=== PATIENT | female | born 1995 | race Caucasian/White ===

== ENCOUNTER 2020-07-21 00:24 | Outpatient (CLI) | payer MEDICAID, SELFPAY ==
--- NOTE | 2020-07-21 | DI.US_ITS ---
EXAM: US OB CRISPIN WEIGHT CLINICAL HISTORY: EFW,CRISPIN,GEST DIABETES,O24.19 TO [facility] AFTER,. TECHNIQUE: Transabdominal obstetrical ultrasound performed. COMPARISON: No exams were available for comparison FINDINGS: Transabdominal obstetrical ultrasound performed. FINDINGS: Number of fetuses: One. position: Cephalic. Placental location: Posterior. No evidence of previa. BIOMETRIC DATA: EFW: 3135 grms 58% Composite Age: 37 weeks 0 days EDC: 08/11/2020 Heart Rate: 165BPM Amniotic fluid index: 15.6 cm. Visually, amount of fluid is within normal limits. IMPRESSION: 1. Single live intrauterine gestation as above. 2. Estimated weight is 3135gms. 3. Amniotic fluid index is 15.6 cm. Visually within normal limits. DATA REPOSITORY:
== END 2020-07-21 00:44 ==
PROVIDERS: Visit Provider Advanced Practice Midwife
DX: O24.410 Gestational diabetes mellitus in pregnancy, diet controlled (principal)
CPT/HCPCS: 76816

== ENCOUNTER 2020-07-21 02:24 | Outpatient (CLI) | payer MEDICAID, SELFPAY ==
[2020-07-21 12:14] LABS: Abs Immature Grans 0.03 10^3/uL (0.0-0.06); Absolute Basophil Count 0.03 10^3/uL (0.0-0.2); Absolute Eosinophil Count 0.04 10^3/uL (0.0-0.7); Absolute Lymphocyte Count 1.62 10^3/uL (1.2-3.4); Absolute Monocyte Count 0.34 10^3/uL (0.1-0.8); Absolute Neutrophil Count 6.01 10^3/uL (1.2-6.7); Basophils % 0.4; Eosinophils % 0.5; HCT 32.8 % (36.0-46.0); HGB 11.7 g/dL (11.2-15.7); Immature Grans % 0.4; Lymphocytes % 20.1; MCH 33.8 pg (27.0-33.0); MCHC 35.7 % (32.0-36.0); MCV 94.8 fL (80-95); MPV 11.2 fL (8.0-11.0); Monocytes % 4.2; Neutrophils % 74.4; Nucleated RBC 0 %; Platelet Count 260 10^3/uL (130-400); RBC 3.46 10^6/uL (3.93-5.22); RDW-SD 52.1 fL; WBC 8.07 10^3/uL (4.4-10.8)
[2020-07-21 13:13] LABS: Hemoglobin A1C 4.2 % (<5.7)
[2020-07-21 13:39] LABS: Glucose 111 mg/dL (74-106)
[2020-08-04 15:35] LABS: Hepatitis C Ab w Rflx HCV PCR Negative (Negative)
[2020-08-04 15:36] LABS: Varicella IgG Antibody Equivocal
[2020-08-04 15:38] LABS: Syphilis Total Ab w/Reflex Nonreactive (Nonreactive)
== END 2020-07-21 02:44 ==
PROVIDERS: Advanced Practice Midwife; Visit Provider Advanced Practice Midwife
DX: Z34.91 Encounter for supervision of normal pregnancy, unspecified, first trimester (principal)
CPT/HCPCS: 36415; 82947; 86787; 86803; 86850; 86900; 86901; 83036; 85025; 86780

== ENCOUNTER 2020-07-21 13:12 | Outpatient (REF) | payer MEDICAID, SELFPAY ==
[2020-07-21 14:33] LABS: *AMPHETAMINES SCREEN URINE Negative (Negative); *BARBITURATES SCREEN URINE Negative (Negative); *BENZODIAZEPINES SCREEN URINE Negative (Negative); Cannabinoids THC Negative (Negative); Cocaine Screen,Urine Negative (Negative); METHADONE URINE SCREEN Negative (Negative); OPIATES URINE SCREEN Negative (Negative)
[2020-07-21 14:35] LABS: Tricyclic Antidepressants Negative (Negative)
[2020-07-29 09:23] LABS: Buprenorphine Negative
== END 2020-07-21 13:32 ==
LOC: LBN 13:12
PROVIDERS: Visit Provider Advanced Practice Midwife
DX: Z34.91 Encounter for supervision of normal pregnancy, unspecified, first trimester (principal)
CPT/HCPCS: 36415; 80307; 82947; 86787; 86803; 86850; 86900; 86901; 83036; 85025; 86780; 87081; 87086

== ENCOUNTER 2020-08-02 12:49 | Outpatient (CLI) | payer MEDICAID, SELFPAY ==
--- NOTE | 2020-08-02 11:00 | NS.NUTBLAN_ITS ---
Holli was referred for Medical Nutrition Therapy for Gestational Diabetes. BEVERLY 08/10/20. Recently transferred to [facility]. 5'2 147 lbs, total weight gain 15 lbs. Holli did not bring in glucometer or blood sugar log. She reports that her fasting sugars are <95 mg/dl, reports most of her post prandial sugars < 120 mg/dl (checking 2 hours after meals). Some elevated post prandials noted, but Holli was able to identify foods that contributed. Holli reports that she had a low BS this week (63 mg/dl) after eating a bowl of rice. She reports food insecurity and was referred to [facility]. Most recent A1C 4.2% (07/21/20) GDM well controlled with diet/activity at this time. Encouraged her to continue to check BS as directed by provider. Reviewed nutritional principles for optimal blood sugar control with GDM- especially balancing carbohydrates and protein at meals. Very receptive to information. Holli to follow up with [facility] Yoder and [facility] for food insecurity and program options available to her.
--- NOTE | 2020-08-12 13:59 | W.DIABETESNO ---
Date of service: 08/12/20 Time of Service: 14:00 Diabetes Note NOTE: Spoke to Holli on phone. Being induced this weekend. Fasting sugars <95 mg/dl. Some elevated post prandial (130-180 mg/dl) but mostly below 140 mg/dl after meals. Did not want to discuss meals at this time. Reports will need more strips to check sugars after . will continue to follow. Time Spent in Nutritional Counseling and Treatment: 10
== END 2020-08-02 13:09 ==
PROVIDERS: Visit Provider Dietitian, Registered
DX: O24.410 Gestational diabetes mellitus in pregnancy, diet controlled (principal); Z71.3 Dietary counseling and surveillance
CPT/HCPCS: 97802

== ENCOUNTER 2020-08-14 19:01 | Inpatient (IN) | payer MEDICAID, SELFPAY ==
[2020-08-14 19:08] VITALS: BP 119/69; PULSE 81; RESP 16; TEMP 36.7; O2SAT 98
[2020-08-14 19:27] LABS: HCT 32.2 % (36.0-46.0); HGB 11.4 g/dL (11.2-15.7); MCH 33.2 pg (27.0-33.0); MCHC 35.4 % (32.0-36.0); MCV 93.9 fL (80-95); MPV 11.7 fL (8.0-11.0); Platelet Count 222 10^3/uL (130-400); RBC 3.43 10^6/uL (3.93-5.22); RDW 13.8 % (11.7-14.6); RDW-SD 46.7 fL; WBC 8.57 10^3/uL (4.4-10.8)
--- NOTE | 2020-08-14 19:38 | W.PM.OBHPL1 ---
Date of service: 08/14/20 Time of Service: 19:38 Assessment and Plan Assessment and plan (1) Elective induction of labor planned: Status: Acute Assessment and plan: Admit to Center. Covid- 19 test. Anticipate . Options for cervical ripening discussed. Will start misoprostol per protocol. Comfort measures discussed. Holli would like to use the shower and tub for comfort. (2) Gestational diabetes: Status: Acute Qualifiers: Gestational diabetes mellitus control: diet-controlled Trimester: third trimester Qualified Code(s): O24.410 - Gestational diabetes mellitus in , diet controlled OB-HPI Labor/Delivery History of Present Illness Reason for Visit: INDUCTION FOR POSTDATES & DIET CONTROLLED GDM Chief Complaint: Scheduled Induction of Labor Indication for Induction: Gestational Diabetes. BEVERLY Calculator Estimated Delivery Date Method Current WG Current Estimate 08/10/20 LMP (Certain) 40w 4d Other Estimates 08/11/20 Ultrasound #1 40w 3d 08/04/20 Ultrasound #2 41w 3d History of Present Expected Delivery Route/Plan - CNM FOB/fioniel - Ezekiel Yusuf (first child) BB yes to circ GBS negative @ 37 wks Varicella non-immune, offer vaccination GDM diet controlled, IOL booked for 08/14 Specific Issues/Plan 1. Acute dental pain in need of tooth extraction. Staff actively searching for oral surgeon @ [facility] @ [facility] 07/21/20. 1a. 08/02 one tooth extrcated and another will be done after delivery. 2. GDM tx w/Diet yet pt w/o written b/s. She has glucometer yet is in such pain she has not recorded them . 2a. At 37 wks 07/21/20 hgba1c = 4.2, Random glucose 111. 3. Transfer from [facility] to [facility] at 37 wks due to relocation 4. Varicella equivocal - accepts offer to vaccinate post 5. Referred to [facility] for eval of resources: parenting, housing, food, risk for depression, met w/ 08/10/20 [facility] Social History Smoking/Tobacco Use Status: Former Tobacco Use Smoking risk assessment performed?: Yes Current gender identity: female History History 1 Para 0 Hx # Term Pregnancies 0 Multiple births 0 Hx # Pregnancies 0 Ectopic pregnancies 0 AB induced 0 Hx Number of Living Children 0 AB spontaneous 0 Meds Home Medications and Allergies Home Medications Medication Instructions Recorded Confirmed Type ferrous sulfate 325 mg (65 mg 324 mg PO BID tab 07/21/20 08/14/20 History iron) tablet omega-3 fatty acids 1,000 mg 1,000 mg PO DAILY 07/21/20 08/14/20 History capsule oxycodone-acetaminophen 5 mg-325 1 tab PO Q4H PRN #20 tab MDD 4 tabs 07/21/20 08/14/20 Rx mg tablet prenat.vits,abhi,alz-ozsm-nilpr 1 tab PO DAILY 07/21/20 08/14/20 History Allergies Allergy/AdvReac Type Severity Reaction Status Date / Time Latex, Natural Rubber Allergy Mild Verified 08/14/20 19:11 Exam Physical Exam Vital signs: Temp Pulse Resp BP Pulse Ox 98.1 F 81 16 119/69 98 08/14/20 19:08 08/14/20 19:08 08/14/20 19:08 08/14/20 19:08 08/14/20 19:08 Vital Signs Reviewed: Yes Constitutional Constitutional: no acute distress Detailed Labor and Delivery Exam Dilation: 1 Effacement (%): 80 station: -1 Cervix position: anterior Consistency: soft Thomas Score: Cervical Points Exam 0 1 2 3 Dilation Closed 1-2cm 3-4 cm 5-6cm Effacement 0-30% 40-50% 60-70% 80% Consistency Firm Medium Soft Station -3 -2 -1,0 +1,+2 Position Posterior Mid Anterior Amniotic Membrane Status: Intact Contraction Intensity: Mild Comments: unaware of comtractions Fetus A Heart Rate Baseline: 128 Monitor Accelerations: 15 X 15 Monitor Decelerations: None Variability: Moderate (6-25 BPM) Presentation: Cephalic Categories: Category I Est. Weight: 7 Respiratory Exam Respiratory Exam: Normal Cardiovascular Exam Cardiovascular Exam: Normal Abdominal Exam Abdominal Exam: Normal Exam Exam: Normal Extremities Exam Extremities Exam: Normal Back/Spine/Pelvis Exam Pelvis Adequate: Yes Skin Exam Skin Exam: Normal Neurological Exam Neurological Exam: Normal Psychiatric Exam Psychiatric Exam: Normal Results Abnormal Lab Findings: Abnormal Labs 08/14/20 19:17 RBC 3.43 L Hct 32.2 L MCH 33.2 H MPV 11.7 H Risk Assessment Risk for Shoulder Dystocia Historical/Initial OB: NEGATIVE FOR: Pelvic Abnormality, Pre- BMI>30, Previous Shoulder Dystocia or Previous Macrosomia 40 Weeks: NEGATIVE FOR: EFW> 4500 gms, Maternal Weight Gain >40lb or Post Dates Counseling: slightly increased risk 2` to + gdm Date/Initial: 07/21/20 + gdm Delivery Plan @ 36wks: Delivery Plan @ 40 wks: IOL at 40+4 wks on 08/14 Risk for Pre-Eclampsia Daily Dose ASA Indicated: No Date Initiated/Initials: 07/21/20 al Yes, if one or more: NEGATIVE FOR: Hx Pre-E/Gest HTN, Chronic HTN, Multiple Gestation, Pre-gestational DM, Renal Disease, Systemic Lupus or APA Syndrome Yes, if 2 or more: POSITIVE FOR: Nulliparity; NEGATIVE FOR: Age>= 35 yrs, >10yr btwn pregnancies, BMI>30, ethinicty, Mother/Sister w/ Pre-E (07/21/20 unknown and transfer to [facility] @ 36 + wks) or Previous IUGR Risk for Post- Hemorrhage Initial: NEGATIVE FOR: Multiple Gestation, Previous PPH, Known Clotting Deficiency, Grand Multiparity or Anticoagulation At Risk?: No Risks Reviewed Risks Reviewed Upon Admission: Yes
[2020-08-14] MEDS: miSOPROStol 25 MCG TAB PO (20:28)
[2020-08-14 22:35] VITALS: BP 105/57; PULSE 64
[2020-08-15] VITALS (78 sets, daily range): BP systolic 94–160; BP diastolic 50–139; PULSE 58–86; RESP 16–18; TEMP 36.4–36.7; O2SAT 98–100
[2020-08-15] MEDS: Zolpidem 5 MG TAB 10 MG PO (00:38)
[2020-08-15] MEDS: miSOPROStol 25 MCG TAB PO ×2 (01:52→05:57)
--- NOTE | 2020-08-15 10:12 | W.PM.OBNL1 ---
Date of service: 08/15/20 Time of Service: 10:12 Pelvic Exam Dilation: 1 Effacement (%): 100 station: -2 Position: NENO Cervix Position: posterior Consistency: soft Vaginal Exam Presentation: Cephalic Contractions Monitor Mode: External Contraction Frequency(min): irregular Intensity: Mild Fetus A Monitor: External (US) Heart Rate Baseline: 125 Presentation: Cephalic Variability: Moderate (6-25 BPM) Categories: Category I FHR Rhythm: Regular Characteristics: Normal Accelerations: 15 X 15 Decelerations: None Amniotic Membrane Status: Intact Assessment and Plan Assessment and plan (1) Post-term , 40-42 weeks of gestation: Status: Acute Assessment and plan: A: G1 @ 40+ wks, GBS neg, IOL for GDM via cervical ripening Latent phase, s/p 3 doses of miso 25 mcg PO P: Cervical effacement @ 100%, fetus LOP Continue misoprostel protocol, increase to 50 mcg Comfort measures as needed, anticipate Objective Vital Signs Reviewed: Yes Objective Narrative Objective Narrative: G1 @ 40 wks IOL for diet controlled GDM Normotensive, afebrile, intact membranes Category 1 tracing this morning Pt appears comfortable and relaxed, FOB present and supportive No concerns or questions from pt or FOB at this time Subjective Patient Reports: No new Complaints Interval history since last seen: rested well last night, no pain, ate well at breakfast. Results Hemoglobin/Hematocrit: Hgb 11.4 g/dL (11.2-15.7) 08/14/20 19:17 Hct 32.2 % (36.0-46.0) L 08/14/20 19:17 Abnormal Lab Findings: Abnormal Labs 08/14/20 19:17 RBC 3.43 L Hct 32.2 L MCH 33.2 H MPV 11.7 H Procedure Procedures: Cervical Ripening Cervical Ripening: Misoprostol
[2020-08-15] MEDS: miSOPROStol 50 MCG TAB (10:20)
--- NOTE | 2020-08-15 15:14 | W.PM.OBNL1 ---
Date of service: 08/15/20 Time of Service: 15:14 Pelvic Exam Dilation: 3 Effacement (%): 100 station: -1 Position: LOP Cervix Position: mid Consistency: soft Vaginal Exam Presentation: Cephalic Fetus A Monitor: Doppler Heart Rate Baseline: 130 Presentation: Cephalic FHR Rhythm: Regular Characteristics: Normal Accelerations: Present Decelerations: None Amniotic Membrane Status: Ruptured Rupture Method: Spontaneous Amniotic Fluid: Clear Amount: moderate Date of Membrane Rupture: 08/15/20 Time of Membrane Rupture: 12:40 Assessment and Plan Assessment and plan (1) Post-term , 40-42 weeks of gestation: Status: Acute Assessment and plan: A: SROM clear, active labor P: Intermittent auscultation Expectant management Comfort measures as needed Anticipate Subjective Interval history since last seen: Painful contractions, pelvic pressure
--- NOTE | 2020-08-15 15:43 | W.PM.OBNL1 ---
Date of service: 08/15/20 Time of Service: 15:43 Informed Consent Informed Consent: Regional Anesthesia and Risk,Benefits,Alternatives Discussed Assessment and Plan Assessment and plan (1) Post-term , 40-42 weeks of gestation: Status: Acute Assessment and plan: A: Active labor, G1, desires regional anesthesia P: [employer] Paged, IV started and bolus begun Continuous EFM Observe for adequacy of labor and consider pit augmentation if needed Pt status updated to Dr. Asher Subjective Interval history since last seen: Pt has used nitrous, position changes and the tub. Reports increasingly severe back pain, desires epidural.
[2020-08-15] MEDS: fentaNYL 100 MCG/2 ML VIAL EP (16:45)
[2020-08-15] MEDS: Lactated Ringers 500 ML 1000 ML IV (17:10)
--- NOTE | 2020-08-15 17:50 | NUR.NOTE ---
pt positioned with rt hip roll. Reports relief from pain. Pain score down to 4 from 10 prior to epiduralNursing Note:
[2020-08-15] MEDS: Oxytocin/Normal Saline 30 UNIT/500 ML BAG 2 UNITS IV (18:18)
[2020-08-15 21:22] LABS: COVID-19 RT-PCR UVMMC Result Negative (Negative)
--- NOTE | 2020-08-15 23:46 | W.PM.OBNL1 ---
Date of service: 08/15/20 Time of Service: 23:46 Pelvic Exam Dilation: 7 station: 0 Position: LOT Cervix Position: anterior Consistency: soft Vaginal Exam Presentation: Cephalic Contractions Monitor Mode: External Contraction Frequency(min): q 2-4 minutes Intensity: Moderate/Strong Fetus A Monitor: External (US) Heart Rate Baseline: 14 Presentation: Cephalic Variability: Moderate (6-25 BPM) Categories: Category I Characteristics: Normal Accelerations: Present Decelerations: None Amniotic Membrane Status: Ruptured Assessment and Plan Assessment and plan (1) Post-term , 40-42 weeks of gestation: Status: Acute Assessment and plan: A: Active labor after IOL for GDM, s/p misoprostel for cervical ripening pitocin augmentation, epidural anesthesia category 1 tracing, clear fluid, GBS neg P: Continue current therapies Recheck for progress in 2-4 hrs Objective Vital Signs Reviewed: Yes Objective Narrative Objective Narrative: Has been resting in sidelying positions and changing sides q 2 hrs Sleeping for past hour Straight cath x1 for small amt urine normotensive and afebrile Category 1 tracing Pitocin at 10mu/min Contractions irregular q 2-4 minutes SVE 7/100% vtx LOT at 0 station Subjective Interval history since last seen: Comfortable since epidural was placed
[2020-08-16] VITALS (21 sets, daily range): BP systolic 95–137; BP diastolic 50–83; PULSE 16–84; RESP 16–18; TEMP 36.3–36.8; O2SAT 95–100
[2020-08-16] MEDS: Lactated Ringers 1,000 ML 125 ML IV ×2 (00:28→06:01)
[2020-08-16] MEDS: Lactated Ringers 500 ML IV (03:44)
[2020-08-16] MEDS: FentaNYL/ROPIvacaine 2 mcg/ml and 0.1% 200 ML CADD Cassette EP (06:01)
--- NOTE | 2020-08-16 06:54 | W.PM.OBNL1 ---
Date of service: 08/16/20 Time of Service: 06:54 Pelvic Exam Dilation: 7 station: 0 Position: LOT Cervix Position: anterior Consistency: soft (edematous) Vaginal Exam Presentation: Cephalic (molding and caput palpable) Contractions Monitor Mode: External Contraction Frequency(min): q 3-4 minutes Intensity: Moderate/Strong Fetus A Monitor: External (US) Heart Rate Baseline: 140 Presentation: Cephalic Variability: Moderate (6-25 BPM) Categories: Category I Accelerations: Present Decelerations: None Amniotic Membrane Status: Ruptured Assessment and Plan Assessment and plan (1) Post-term , 40-42 weeks of gestation: Status: Acute Assessment and plan: A: G1 @ 40+ wks, IOL for GDM Active labor, SROM clear, epidural, pit aug arrest of dilation x 7 hours EFW 3700 gms P: Dr. Asher updated with pt status Will be to evaluate pt for route of delivery Objective Temp Pulse Resp BP Pulse Ox 98.2 F 71 18 112/61 99 08/16/20 06:03 08/16/20 06:01 08/16/20 03:05 08/16/20 06:01 08/15/20 23:58 Vital Signs Reviewed: Yes Objective Narrative Objective Narrative: Pt has had a comfortable night, resting well under epidural anesthesia 2nd I&O cath resulted in 200 ml concentrated urine, 500 ml IVF bolus given Pitocin at 12 mu/min, contrax q 3-4 minutes currently Category 1 tracing consistently Cervix checked at 0200 and 0630, no change since MN Subjective Patient Reports: No new Complaints Interval history since last seen: Pt has been sleeping most of the night, this morning states she is comfortable and a little sleepy.
--- NOTE | 2020-08-16 07:57 | W.OBCONSULT ---
Date of service: 08/16/20 Time of Service: 07:57 Assessment and Plan Assessment and plan (1) Post-term , 40-42 weeks of gestation: Status: Acute (2) Gestational diabetes: Status: Acute Qualifiers: Gestational diabetes mellitus control: diet-controlled Trimester: third trimester Qualified Code(s): O24.410 - Gestational diabetes mellitus in , diet controlled (3) Obstructed labor due to deep transverse arrest and persistent occipitoposterior position: Status: Acute Assessment and plan: will proceed to the OR for section History of Present Illness History of Present Illness Chief Complaint: labor arrest Narrative: Patient is a 25-year-old functional primip who has most recently had care by our certified nurse midwives. She transferred care approximately 4 weeks prior. She has a known diagnosis of gestational diabetes which was well controlled with diet. 36-week ultrasound showed an appropriately grown baby. She had a labor induction due to term with diet-controlled gestational diabetes. She received Cytotec for cervical ripening and subsequently had spontaneous rupture of membranes for clear fluid at noon 12. At that point she was 3 to 4 cm. She received an epidural for pain control after using hydrotherapy. She progressed to the point that she was approximately 7 cm dilated and that point has had a labor arrest. There is a significant amount of caput, baby is in the occiput posterior position with thick anterior cervical lip. She did receive Pitocin augmentation of her labor in efforts to regulate her contraction pattern. I was asked to see the patient at that point due to the fact that she has made no cervical change and has no further descent of the vertex. We discussed at length the risks, benefits, and alternatives of section including risk of infection, bleeding, injury to surrounding organs, risk of anesthesia, risk of thromboembolism. She is given opportunity to ask questions and make an informed decision. As there is no urgency for section at this point, with a reassuring maternal and status, procedure will be performed with the next available operating room. I will yet again check her cervix prior to Consults Consult date: 08/16/20 Requesting physician: Joleen Bateman Review of Systems Narrative: Patient is feeling well, tired but comfortable with her epidural. She has no pain. Baby continues to be active. She is not particularly aware of her contractions. All systems reviewed & are unremarkable except as noted in HPI and below Cardiovascular Cardiovascular: Reports as per HPI and Reports system reviewed and no additional complaints, except as documented Respiratory Respiratory: Reports system reviewed and no additional complaints, except as documented Gastrointestinal Gastrointestinal: Reports system reviewed and no additional complaints, except as documented Genitourinary Genitourinary: Reports as per HPI Neurologic Neurologic: Reports system reviewed and no additional complaints, except as documented [facility] Medical History (Updated 08/16/20 @ 08:09 by Bethany Asher DO) Obstructed labor due to deep transverse arrest and persistent occipitoposterior position Social History Smoking/Tobacco Use Status: Former Tobacco Use Smoking risk assessment performed?: Yes Alcohol Intake: former Substance use type: does not use Current gender identity: female History History 1 Para 0 Hx # Term Pregnancies 0 Multiple births 0 Hx # Pregnancies 0 Ectopic pregnancies 0 AB induced 0 Hx Number of Living Children 0 AB spontaneous 0 Exam Const General: cooperative, healthy appearing, comfortable, no acute distress and well developed Nutritional Appearance: average body habitus Orientation: alert and oriented x3 Eyes General: appearance normal, both eyes and all related structures Resp Effort & Inspection: normal respiratory effort Cardio Rate: regular rate Rhythm: regular rhythm GI Inspection: normal to inspection External Female Exam: normal external appearance Manual OB Exam: dilated 7, effaced 50%, station 0 and other Amniotic Fluid: clear Other: Significant caput and molding Neuro General: patient alert Cognition: normal cognition Speech: speech normal Results Last Vital Signs Temp 98.2 F 08/16/20 07:27 Pulse 75 08/16/20 07:29 Resp 16 08/16/20 07:27 BP 116/69 08/16/20 07:27 Pulse Ox 99 08/16/20 07:29 Labs Result diagrams: 08/14/20 19:17 Labs: Laboratory Results - last 24 hr 08/14/20 19:48 SARS-CoV-2 (PCR) Negative Nasopharyn COVID-19 PCR Not Applicable Ref Test Perform Site [facility] lab
[2020-08-16] MEDS: Sodium Citrate 30 ML CUP PO (08:39)
[2020-08-16] MEDS: Water,Injection,Sterile 10 ML VIAL (08:41)
[2020-08-16] MEDS: AZITHROMYCIN 500 MG in Normal Saline 250 ML 250 MG IVPB (08:41)
[2020-08-16] MEDS: ceFAZolin 2 GM/50 ML BAG IVPB (09:38)
--- NOTE | 2020-08-16 10:48 | W.PM.OBCSECT ---
Date of service: 08/16/20 Time of Service: 10:48 Operative Note Operative Note Delivery Method: Unscheduled Category: Urgent (Labor arrest, reassuring maternal status) DATE OF PROCEDURE: 08/16/20 PRE-OP DIAGNOSES: Arrest of dilation POST-OP DIAGNOSES: same Persistent occiput posterior PROCEDURE: Primary low transverse section SURGEON: Bethany Asher Ct Scan Special Procedures Technologist: Reva Enriquez Anesthesia: epidural Estimated blood loss (mL): 600 Pathology: none sent Complications: None Patient was transported to: floor Patient's condition: stable Indications: Rest of dilation at 7 cm with significant molding and caput. No progression of labor over the course of approximately 7 hours Findings: Viable male infant with Apgars of 9 and 10, persistent occiput posterior Procedure Description: Patient is a 25-year-old primigravida with known history of gestational diabetes which was diet controlled. She had an induction of labor at term for this reason. She had cervical ripening, spontaneous rupture of membranes for clear fluid, received epidural for pain control and arrested her labor at 7 cm. The risks, benefits, alternatives of procedure explained patient full informed consent was obtained she was taken the operating suite with an IV running where epidural anesthesia that it had previously administered was dosed tested and found to be adequate. She is then placed in dorsal supine position and Baez catheter inserted, vaginal prep performed. heart tones prior to procedure 138. She is prepped and draped in the usual sterile fashion. Pfannenstiel skin incision was made carried down to the underlying fascia which was nicked in the midline extended laterally. The rectus muscles were then identified split in the midline and peritoneum identified tented up and entered sharply. The peritoneal incision was then extended superiorly and inferiorly and the bladder blade was inserted. Vesicouterine peritoneum identified tented up and entered sharply and the bladder flap created. Bladder blade was reinserted and a low transverse uterine incision was made with a scalpel and extended bluntly laterally. The vertex was found to be in the persistent left occiput posterior position and delivered atraumatically through the uterine incision. Shoulders followed with ease. There is no evidence of nuchal cord. Three-vessel cord was noted clamped x2 and cut and the was handed off to the waiting pediatric team. At this point cord blood segment and cord blood sample were both obtained and the placenta was manually expressed from the uterus. Uterus and was exteriorized and cleared of all clot and debris. Uterine incision was closed using 0 Monocryl suture initial layer was in a running locked fashion, second layer in imbricating fashion. Uterine incision was hemostatic and uterus was returned to the abdomen. Normal tubes and ovaries were present. Abdomen is then irrigated with normal saline and cleared of all clot and debris. Uterine incision was reinspected and found to be hemostatic. At this point the fascial incision was closed using 0 Vicryl suture in a running fashion. Subcutaneous tissue irrigated with copious amounts of normal saline subcu space was reapproximated with 3-0 Vicryl stitch and the skin edge was closed using 4-0 Monocryl in a subcuticular fashion. Steri-Strips were placed. At the completion of surgery Baez catheter was in place draining concentrated urine of approximately 100 cc EBL: 600 cc Complications: None apparent Findings: Delivered viable male infant. Normal tubes ovaries and uterus. Weight to be before performed on the center
[2020-08-16] MEDS: Lactated Ringers 1,000 ML 120 ML IV ×2 (13:03→21:00)
[2020-08-16] MEDS: Ketorolac 30 MG/ML VIAL IVP ×2 (16:16→22:00)
[2020-08-17] VITALS: BP 96/55; PULSE 72; RESP 16; TEMP 36.7; O2SAT 98
[2020-08-17 04:00] VITALS: BP 98/60; PULSE 70; RESP 16; TEMP 36.6; O2SAT 98
[2020-08-17] MEDS: Ketorolac 30 MG/ML VIAL IVP ×2 (04:00→10:05)
[2020-08-17 06:37] LABS: Abs Immature Grans 0.06 10^3/uL (0.0-0.06); Absolute Basophil Count 0.04 10^3/uL (0.0-0.2); Basophils % 0.3; Eosinophils % 0.4; HCT 25.4 % (36.0-46.0); HGB 8.6 g/dL (11.2-15.7); Immature Grans % 0.4; Lymphocytes % 14.8; MCHC 33.9 % (32.0-36.0); MCV 97.3 fL (80-95); MPV 11.5 fL (8.0-11.0); Monocytes % 5.2; Neutrophils % 78.9; Nucleated RBC 0 %; Platelet Count 179 10^3/uL (130-400); RBC 2.61 10^6/uL (3.93-5.22); RDW 14.4 % (11.7-14.6); RDW-SD 51.1 fL; WBC 13.75 10^3/uL (4.4-10.8)
[2020-08-17 06:40] LABS: Absolute Eosinophil Count 0.06 10^3/uL (0.0-0.7); Absolute Lymphocyte Count 2.04 10^3/uL (1.2-3.4); Absolute Monocyte Count 0.72 10^3/uL (0.1-0.8); Absolute Neutrophil Count 10.85 10^3/uL (1.2-6.7)
[2020-08-17 07:35] LABS: Diff Comment Diff Reviewed; Hypochromasia 1+
[2020-08-17 08:28] VITALS: BP 90/57; PULSE 90; RESP 16; TEMP 36.6; O2SAT 98
[2020-08-17] MEDS: Normal Saline Flush 10 ML SYR IVP (10:04)
[2020-08-17] MEDS: Docusate Sodium 100 MG CAP PO ×2 (10:05→17:22)
[2020-08-17 12:32] VITALS: BP 106/54; PULSE 76; RESP 14; TEMP 36.9; O2SAT 98
--- NOTE | 2020-08-17 15:57 | W.PM.PROGNOT ---
Date of Service Date of service: 08/17/20 Time of Service: 15:58 Assessment and Plan Assessment and plan (1) Status post primary low transverse section: Status: Acute Assessment and plan: Routine postoperative care. Continue working on breast-feeding. Good bonding. Patient considering Nexplanon for contraception. Baby to be circumcised. Anticipate discharge in 24 to 48 hours. Subjective Subjective Patient reports: no new complaints, feels better, pain is less, tolerating a regular diet, voiding w/o difficulty and flatus Interval history since last seen: Patient seen and examined this morning doing great. Bonding well with her . Comfortable, breast-feeding without difficulty Exam Const General: cooperative, healthy appearing, comfortable and no acute distress Eyes General: appearance normal, both eyes and all related structures Resp Effort & Inspection: normal respiratory effort Auscultation: clear to auscultation bilaterally Cardio Rate: regular rate Rhythm: regular rhythm GI Inspection: normal to inspection Palpation: soft and no guarding Other: Incision dressed Neuro General: patient alert, patient awake and patient oriented x3 Cranial Nerves: CN's II-XI intact bilaterally Extrem General: no clubbing, cyanosis or edema and no calf tenderness Objective Last Vital Signs Temp 98.4 F 08/17/20 12:32 Pulse 76 08/17/20 12:32 Resp 14 08/17/20 12:32 BP 106/54 L 08/17/20 12:32 Pulse Ox 98 08/17/20 12:32 Laboratory Results - last 24 hr 08/17/20 06:20 WBC 13.75 H RBC 2.61 L Hgb 8.6 L D Hct 25.4 L D MCV 97.3 H MCH 33.0 MCHC 33.9 RDW 14.4 Plt Count 179 MPV 11.5 H Immature Gran % 0.4 Neutrophils % 78.9 Lymphocytes % 14.8 Monocytes % 5.2 Eosinophils % 0.4 Basophils % 0.3 Nucleated RBC % 0 Absolute Neutrophils 10.85 H Absolute Lymphocytes 2.04 Absolute Monocytes 0.72 Absolute Eosinophils 0.06 Absolute Basophils 0.04 RBC Morphology See below Hypochromasia 1+
[2020-08-17] MEDS: Ibuprofen 600 MG TAB PO ×2 (17:21→23:00)
[2020-08-17] MEDS: oxyCODONE 5 mg/Acetaminophen 325 mg TAB PO (17:21)
[2020-08-17] MEDS: Acetaminophen 325 MG TAB 650 MG PO (19:55)
[2020-08-17 20:00] VITALS: BP 100/52; PULSE 78; RESP 16; TEMP 37.1; O2SAT 99
[2020-08-18] MEDS: Acetaminophen 325 MG TAB 650 MG PO (03:30)
[2020-08-18] MEDS: Ibuprofen 600 MG TAB PO (05:55)
--- NOTE | 2020-08-18 07:11 | OBPPV_ITS ---
Date of service: 08/18/20 Time of Service: 07:11 Assessment and Plan Assessment and plan (1) Status post primary low transverse section: Status: Acute Assessment and plan: Postoperative day #2 status post primary low transverse section for arrest of dilation. Patient is doing well. [place] is feeding well. Baby was circumcised yesterday. Patient anticipating Nexplanon for contraceptive therapy. Pain is well controlled, ambulating without difficulty, tolerating regular diet. Anticipate discharge home later today. Subjective Subjective Interval history: Patient seen and examined this morning postoperative day #2 status post primary low transverse section. She and her infant are doing well. She has good family bonding with her partner. I would anticipate discharge home later today if appropriate for the . Patient comments: No complaints, Pain well controlled, Incisional pain, Tolerating diet and Flatus present Patient's Mood: good [place] baby status: Doing well, Nursing well, Rooming in and Strong Bonding Observed feeding status: Exclusively breast feeding Exam Physical Exam Vital signs: Temp Pulse Resp BP Pulse Ox 98.8 F 78 16 100/52 L 99 08/17/20 20:00 08/17/20 20:00 08/17/20 20:00 08/17/20 20:00 08/17/20 20:00 Constitutional Constitutional: no acute distress HEENT Exam HEENT Exam: Normal Respiratory Exam Respiratory Exam: Normal Cardiovascular Exam Cardiovascular Exam: Normal Abdominal Exam Comments: Abdomen soft, nontender, incision intact. No signs or symptoms of infection Extremities Exam Extremity Exam: Normal; negative Calf Tenderness and Edema Skin Exam Skin Exam: Normal Neurological Exam Neurological Exam: Normal Psychiatric Exam Psychiatric Exam: Normal Results Hemoglobin/Hematocrit: Hgb 8.6 g/dL (11.2-15.7) L D 08/17/20 06:20 Hct 25.4 % (36.0-46.0) L D 08/17/20 06:20 Abnormal Lab Findings: Abnormal Labs 08/14/20 08/17/20 19:17 06:20 WBC 13.75 H RBC 3.43 L 2.61 L Hgb 8.6 L D Hct 32.2 L 25.4 L D MCV 97.3 H MCH 33.2 H MPV 11.7 H 11.5 H Absolute Neutrophils 10.85 H
--- NOTE | 2020-08-18 07:20 | W.PM.DS.N ---
Date of service: 08/18/20 Time of Service: 07:20 DS: Diagnosis Discharge Diagnosis (1) Status post primary low transverse section: Status: Acute Discharge Plan Disposition Patient Disposition: HOME Condition: Good Discharge Details Reason For Visit: Primary section Admit Date/Time: 08/14/20 19:01 Admit Provider: Li Montano Attending Provider: Li Montano Primary Care Provider: None,None Hospital Course Hospital Course: Patient is a 25-year-old primigravida who had care with [facility]. She had transferred to us approximately 4 to 6 weeks ago. She has a known history of gestational diabetes which was well controlled with diet. She had a scheduled induction of labor at term for the previously mentioned reason. She received cervical ripening, had spontaneous rupture of membranes and epidural for pain control. She dilated to approximately 7 cm with a deep occiput posterior labor arrest. Patient was noted to have significant caput and vertex not below the symphysis though significant caput present. Decision was made for primary low transverse section. After consent obtained, patient underwent procedure. She was found to have a macrosomic and persistent occiput posterior. She had uncomplicated postoperative course and was discharged home postoperative day #2 ambulating, tolerating regular diet and oral pain medication with stable vital signs. She is exclusively breast-feeding her son. She will receive Nexplanon for contraceptive therapy Home Meds and New Rx's Prescriptions: New ibuprofen 600 mg tablet 600 mg PO Q6H PRNQty: 60 RF: 0 hydrocodone-acetaminophen [[place]] 5-325 mg tablet 1 tab PO Q6H PRNQty: 10 RF: 0 docusate sodium [Colace] 100 mg capsule 100 mg PO BID Qty: 30 RF: 0 Continued prenat.vits,abhi,sdu-xobc-vimju Tablet 1 tab PO DAILY RF: 0 omega-3 fatty acids [Fish Oil Concentrate] 1,000 mg capsule 1,000 mg PO DAILY RF: 0 ferrous sulfate [FeroSul] 325 mg (65 mg iron) tablet 324 mg PO BID RF: 0 Discontinued oxycodone-acetaminophen 5-325 mg tablet 1 tab PO Q4H MDD 4 tabs PRN (Reason: dental pain) Qty: 20 RF: 0 Discharge Instructions Additional Instructions: Follow up with Dr. Asher in 2 weeks Stand Alone Forms: BC Discharge Instruc Activity:: pelvic rest Equipment/Supplies:: No Equipment Needed Diet:: As Tolerated Discharge Orders Discharge Orders: Discharge Order (Routine); Ordered 08/18/20 Ordered By: Bethany Asher DS: Summary Status at Discharge Functional status at discharge: independent ambulation Overall status at discharge: patient is progressing back to baseline Mental Status: mental status grossly normal Speech and Movement: speech and movement normal Mood: congruent mood Affect: normal affect Time Spent with Patient providing and/or coordinating discharge services: Less than 30 minutes Exam Narrative Exam Narrative: See exam performed in progress note dated 08/18/2020 Psych Mental Status: mental status grossly normal Speech and Movement: speech and movement normal Mood: congruent mood Affect: normal affect DS: Data Vitals/I&O Vitals and I&O: Vital Signs Temperature 98.8 F 08/17/20 20:00 Temperature Source Oral 08/15/20 18:42 Pulse 78 08/17/20 20:00 Pulse Rhythm Regular 08/17/20 08:28 Respiratory Rate 16 08/17/20 20:00 Respiratory Depth Normal 08/14/20 19:50 Blood Pressure 100/52 L 08/17/20 20:00 Blood Pressure Mean 68 08/17/20 20:00 Pulse Oximetry 99 08/17/20 20:00 Oxygen Delivery Method Room Air 08/15/20 18:42 Oxygen Flow Rate 0 08/15/20 18:42 Pain Level 3 08/17/20 20:00 Intake & Output 08/17/20 08/17/20 08/18/20 11:59 23:59 11:59 Intake Total 896 / 1496 600 / 1496 Output Total 1250 / 1950 700 / 1950 Balance -354 / -454 -100 / -454 Intake: IV 896 / 896 Oral 600 / 600 Output: Urine 1250 / 1950 700 / 1950 Other: Urine Color Yellow Data Completed and Pending Labs on day of discharge: Labs from last 24 hours 08/17/20 06:20 WBC 13.75 H RBC 2.61 L Hgb 8.6 L D Hct 25.4 L D MCV 97.3 H MCH 33.0 MCHC 33.9 RDW 14.4 Plt Count 179 MPV 11.5 H Immature Gran % 0.4 Neutrophils % 78.9 Lymphocytes % 14.8 Monocytes % 5.2 Eosinophils % 0.4 Basophils % 0.3 Nucleated RBC % 0 Absolute Neutrophils 10.85 H Absolute Lymphocytes 2.04 Absolute Monocytes 0.72 Absolute Eosinophils 0.06 Absolute Basophils 0.04 RBC Morphology See below Hypochromasia 1+ PFSH Medical History Obstructed labor due to deep transverse arrest and persistent occipitoposterior position Surgical History Status post primary low transverse section Social History Smoking/Tobacco Use Status: Former Tobacco Use Smoking risk assessment performed?: Yes Alcohol Intake: former Substance use type: does not use Current gender identity: female History History 1 Para 0 Hx # Term Pregnancies 0 Multiple births 0 Hx # Pregnancies 0 Ectopic pregnancies 0 AB induced 0 Hx Number of Living Children 0 AB spontaneous 0
[2020-08-18] MEDS: Varicella Virus Vaccine (Live) 0.5 ML SC (09:00)
--- NOTE | 2020-08-18 11:09 | W.PM.OBPNV1 ---
Date of service: 08/18/20 Time of Service: 11:14 Assessment and Plan Assessment and plan (1) Encounter for insertion subdermal contraceptive: Status: Acute Assessment and plan: Nexplanon insertion site marked with pen and left upper arm cleansed with betadine and alcohol. Approximately 0.5 cc of local anesthetic injected at insertion site and deeply along insertion path. Nexplanon inserted without difficulty and patient tolerated the procedure well. Pressure dressing applied and patient was instructed to keep a bandaid in place for three days and replace the bandaid if the dressing becomes wet. The patient and I identified the device after the procedure. Signs of infection were reviewed. Exam Physical Exam Vital signs: Temp Pulse Resp BP Pulse Ox 98.8 F 78 16 100/52 L 99 08/17/20 20:00 08/17/20 20:00 08/17/20 20:00 08/17/20 20:00 08/17/20 20:00 Results Hemoglobin/Hematocrit: Hgb 8.6 g/dL (11.2-15.7) L D 08/17/20 06:20 Hct 25.4 % (36.0-46.0) L D 08/17/20 06:20 Abnormal Lab Findings: Abnormal Labs 08/14/20 08/17/20 19:17 06:20 WBC 13.75 H RBC 3.43 L 2.61 L Hgb 8.6 L D Hct 32.2 L 25.4 L D MCV 97.3 H MCH 33.2 H MPV 11.7 H 11.5 H Absolute Neutrophils 10.85 H Procedure Procedures: Insertion of Contraceptive Device , Subdermal Implant Contraceptive Placement: Upper Left Arm
[2020-08-18 13:15] VITALS: BP 115/71; PULSE 72; RESP 14; TEMP 36.7
== END 2020-08-18 11:20 | disposition home or self-care (01) | DRG 788 ==
PROVIDERS: Obstetrics & Gynecology; Admitting Provider Advanced Practice Midwife; Visit Provider Advanced Practice Midwife
PROC: 10D00Z1 Extraction of Products of Conception, Low, Open Approach (ICD-10-PCS; CPT 59514; principal; 2020-08-16 09:15)
DX: O48.0 Post-term pregnancy; O24.420 Gestational diabetes mellitus in childbirth, diet controlled; O61.0 Failed medical induction of labor; O62.1 Secondary uterine inertia; Z3A.41 41 weeks gestation of pregnancy; Z37.0 Single live birth
CPT/HCPCS: 59514; 36415; 85027; 86850; 86900; 86901; 99232; 99238; 99253; U0003; 85025; J0171; J0456; J0690; J1885; J2405; J3010; J3490

== ENCOUNTER 2020-10-13 02:50 | Outpatient (CLI) | payer MEDICAID, SELFPAY ==
[2020-10-13 11:08] LABS: GTT Comment See Comments
== END 2020-10-13 02:51 | disposition home or self-care (01) ==
LOC: LBO 02:50
PROVIDERS: Visit Provider Obstetrics & Gynecology
DX: Z86.32 Personal history of gestational diabetes (principal)
CPT/HCPCS: 36415; 82951

== ENCOUNTER 2022-01-10 09:01 | Outpatient (REF) | payer MEDICAID, SELFPAY ==
[2022-01-10 16:09] LABS: HCT 35.9 % (36.0-46.0); HGB 11.9 g/dL (11.2-15.7); MCHC 33.1 % (32.0-36.0); MCV 90 fL (80-95); MPV 10.4 fL (8.0-11.0); Platelet Count 283 10^3/uL (130-400); RBC 3.97 10^6/uL (3.93-5.22); RDW 14.5 % (11.7-14.6); RDW-SD 47.9 fL; WBC 8.79 10^3/uL (4.4-10.8)
[2022-01-11 05:17] LABS: Vitamin D 25 Total 15.4 ng/mL (30-100)
== END 2022-01-10 09:02 | disposition home or self-care (01) ==
LOC: NCHCN 09:01
PROVIDERS: Visit Provider Nurse Practitioner Family
DX: E06.9 Thyroiditis, unspecified (principal); N92.0 Excessive and frequent menstruation with regular cycle; E55.9 Vitamin D deficiency, unspecified
CPT/HCPCS: 82306; 85027; 84443

== ENCOUNTER 2023-01-02 17:50 | Outpatient (REF) | payer MEDICAID, SELFPAY ==
[2023-01-02 17:38] LABS: Abs Immature Grans 0.02 10^3/uL (0.0-0.06); Absolute Basophil Count 0.05 10^3/uL (0.0-0.2); Absolute Eosinophil Count 0.25 10^3/uL (0.0-0.7); Absolute Lymphocyte Count 2.04 10^3/uL (1.2-3.4); Absolute Monocyte Count 0.37 10^3/uL (0.1-0.8); Absolute Neutrophil Count 4.48 10^3/uL (1.2-6.7); Basophils % 0.7; Eosinophils % 3.5; HCT 36.6 % (36.0-46.0); HGB 12.9 g/dL (11.2-15.7); Immature Grans % 0.3; Lymphocytes % 28.3; MCH 30.9 pg (27.0-33.0); MCHC 35.2 % (32.0-36.0); MCV 88 fL (80-95); MPV 10.3 fL (8.0-11.0); Monocytes % 5.1; Neutrophils % 62.1; Platelet Count 361 10^3/uL (130-400); RBC 4.18 10^6/uL (3.93-5.22); RDW 13.1 % (11.7-14.6); RDW-SD 41.7 fL; WBC 7.21 10^3/uL (4.4-10.8)
[2023-01-02 17:48] LABS: Vitamin D 25 Total 25.3 ng/mL (30-100)
[2023-01-02 17:49] LABS: ALT 29 U/L (14-59); AST 20 U/L (15-37); Albumin 4.4 g/dL (3.4-5.0); Alkaline Phosphatase 70 U/L (46-116); Anion Gap 9.8 mmol/L (3-11); BUN 7 mg/dL (7-18); Bilirubin, Total 0.9 mg/dL (0.2-1.0); CO2 27.2 mmol/L (21.0-32.0); CREATININE 0.8 mg/dL (0.55-1.02); Chloride 104 mmol/L (98-107); Estimated GFR 102.22 (mL/min/1.73m2); Glucose 106 mg/dL (74-106); Potassium 3.8 mmol/L (3.5-5.1); Sodium 141 mmol/L (136-145); TSH (W/Ref FT4) 6.22 uIU/mL (0.36-3.74); Total Protein 7.9 g/dL (6.4-8.2); Vitamin B12 265 pg/mL (193-986)
[2023-01-02 18:07] LABS: FREE T4 0.73 ng/dL (0.76-1.46)
== END 2023-01-02 17:51 | disposition home or self-care (01) ==
LOC: NCHCN 17:50
PROVIDERS: Visit Provider Registered Nurse
DX: F32.9 Major depressive disorder, single episode, unspecified (principal)
CPT/HCPCS: 80053; 82306; 82607; 84439; 84443; 85025

== ENCOUNTER 2023-02-14 15:53 | Outpatient (REF) | payer SELFPAY ==
[2023-02-14 19:46] LABS: TSH (W/Ref FT4) 3.68 uIU/mL (0.36-3.74)
== END 2023-02-14 15:54 | disposition home or self-care (01) ==
LOC: NCHCN 15:53
PROVIDERS: Visit Provider Registered Nurse
DX: E06.9 Thyroiditis, unspecified (principal)
CPT/HCPCS: 84443